=== PATIENT | male | born 1985 | race Caucasian/White ===

== ENCOUNTER 2020-10-01 09:28 | Outpatient (REF) | payer MEDICAID, SELFPAY ==
[2020-10-01 10:15] LABS: Estimated Average Glucose 123 mg/dL; Hemoglobin A1c % 5.9 %
[2020-10-01 10:26] LABS: Anion Gap 13 (12-20); Blood Urea Nitrogen 14 mg/dL (9-16); Calcium 9.2 mg/dL (8.4-10.2); Carbon Dioxide 28 mmol/L (22-29); Chloride 105 mmol/L (96-108); Cholesterol 205 mg/dL; Estimated Glomerular Filt Rate > 60; Glucose Fasting 87 mg/dL (60-99); HDL Cholesterol 51 mg/dL; LDL Cholesterol Calculated 134 mg/dl; Potassium 4.5 mmol/l (3.3-5.1); Sodium 141 mmol/L (135-145); Triglycerides 104 mg/dL
== END 2020-10-01 09:29 | disposition home or self-care (01) ==
LOC: HO.LAB 09:28
PROVIDERS: PCP Registered Nurse Community Health; Visit Provider Registered Nurse Community Health
DX: E66.9 Obesity, unspecified (principal); R03.0 Elevated blood-pressure reading, without diagnosis of hypertension
CPT/HCPCS: 80048; 80061; 83036

== ENCOUNTER 2020-12-09 09:21 | Outpatient (REF) | payer MEDICAID, SELFPAY ==
--- NOTE | 2020-12-09 09:00 | EMG_ITS ---
Bilateral tibial and peroneal motor studies were performed. Bilateral superficial peroneal and sural sensory studies were performed. Bilateral median and lateral plantar sensory studies were performed. Tibial H reflexes were obtained and paraspinal muscles were tested with a needle. IMPRESSION: 1. Mild sensorimotor peripheral neuropathy. 2. 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 MD HEMALATHA Caicedo/ISAAC / [id number]
== END 2020-12-09 09:22 | disposition home or self-care (01) ==
LOC: HO.NEURO 09:21
PROVIDERS: PCP Registered Nurse Community Health; Visit Provider Registered Nurse Community Health
DX: R20.2 Paresthesia of skin (principal)
CPT/HCPCS: 95886; 95913

== ENCOUNTER 2020-12-30 11:00 | Outpatient (RCR) | payer MEDICAID, SELFPAY | END 2020-12-30 13:45 | disposition other institution (70) | LOC: HO.PT 11:00 | PROVIDERS: Visit Provider Registered Nurse Community Health | DX: M51.37 Other intervertebral disc degeneration, lumbosacral region (principal) | CPT/HCPCS: 97110; 97112; 97140; 97161 ==

== ENCOUNTER 2021-07-22 19:42 | Emergency (ER) | payer MEDICAID, SELFPAY ==
--- NOTE | ~2021-07-22 | XR_ITS ---
EXAMINATION: XR LUMBOSACRAL SPINE CLINICAL INFORMATION: Low back pain COMPARISON: None TECHNIQUE: Three views of the lumbosacral spine. FINDINGS: The vertebral bodies and posterior elements are normal. The disc spaces are preserved and the vertebral alignment is normal. The paraspinal soft tissues are normal. XR/XR lumbar spine 2-3V IMPRESSION: Unremarkable examination.
[2021-07-22 19:48] VITALS: BP 139/95; PULSE 92; RESP 16; TEMP 35.9; O2SAT 98; BMI 34.5
--- NOTE | 2021-07-22 23:24 | ED_ITS ---
HPI - Back Pain/Injury General Chief Complaint: Back Pain/Injury Stated Complaint: back pain Source: patient Mode of arrival: ambulatory Limitations: no limitations History of Present Illness HPI Narrative: 36-year-old male presents with lower back pain and spasming after attempting to move a bunk bed about a week ago. MD elicited complaint: back pain and back injury Pertinent past history: recent trauma Onset (ago): week(s) (1) Timing: intermittent Severity: moderate Similar Symptoms Previously: No Quality: aching and spasming Location: lumbar spine Radiation: none Exacerbating factors: movement, walking and lifting Relieving factors: none Context: while lifting and turning/twisting Associated symptoms: denies other symptoms Treatments prior to arrival: cold therapy, NSAIDS and acetaminophen Work related injury: No Related Data Previous Rx's Medication Instructions Recorded cyclobenzaprine 10 mg tablet 10 mg PO TID PRN #14 tab 07/22/21 naproxen 500 mg tablet 500 mg PO BID PRN #30 tab 07/22/21 Allergies Allergy/AdvReac Type Severity Reaction Status Date / Time No Known Allergies Allergy Unverified 07/29/20 19:30 [No Known Allergies*] Review of Systems Review of Systems: Constitutional: No Fever, No Chills ENT/Mouth: No Ear Pain, No Hoarseness, No sore throat Eyes: No Eye Pain, No Swelling, No Redness, No Foreign Body Cardiovascular: No Chest Pain, No SOB Respiratory: No Cough, No Dyspnea Gastrointestinal: No Nausea, No Vomiting, No Diarrhea, No abdominal Pain Genitourinary: No Dysuria, No Hematuria Musculoskeletal: positive lumbar back pain, No Myalgias, No Joint Swelling Skin: No Skin lacerations, No rash Neuro: No Weakness, No Numbness, No Paresthesias, No Loss of Consciousness, No Dizziness, No Headache Psych: No Anxiety/Panic, No Depression Heme/Lymph: no easy bruising, no Lymphadenopathy Endocrine: No Polyuria, No Polydipsia Yes all other systems are reviewed and are negative [facility] Past Medical History Attestation statement: The following information was validated with the patient. Source: old records reviewed Medical History Chronic arthritis Herniated disc Social History Social History Advance Directives: No Physical Exam Vital Signs: Vital Signs: Last Vital Signs Temp 96.6 F L 07/22/21 19:48 Pulse 92 07/22/21 19:48 Resp 16 07/22/21 19:48 BP 139/95 H 07/22/21 19:48 Pulse Ox 98 07/22/21 19:48 Body Mass Index 34.5 Appearance: Alert. Oriented X3. Mild distress. Eyes: Pupils equal, round and reactive to light. ENT: Pharynx normal. Moist mucous membranes. Neck: Normal inspection. Neck supple. No vertebral step-offs or vertebral tenderness to palpation. CVS: Normal heart rate and rhythm. Pulses normal. Respiratory: No respiratory distress. Breath sounds normal. Abdomen: Soft and nontender. Skin: Skin warm and dry. Normal skin color. Normal skin turgor. Extremities: Moves all extremities against resistance. Gait well bowels well coordinated. Neuro: No motor deficit. No sensory deficit. Cranial nerves 2-12 intact. Course Course Course Narrative: 36-year-old male presents with lower back pain and spasming. He was lifting a bunk bed approximately a week ago, pulled back and pain persists. Tylenol, Motrin, heating pads, and salon Rodríguez are ineffective. Will order x-ray. Patient does not have any reports of cauda equina, has a well- balanced well coordinated gait. No reports of dysuria, hematuria, or flank pain. Lumbar spine x-ray negative for acute findings require emergent intervention. Patient will be discharged with supportive measures. Patient verbalized understanding of and agrees plan of care discharge home. MDM - Back Pain/Injury Differential Diagnosis Differential diagnosis: Likely lumbar radiculopathy and strain of lumbar region Medical Records Attestation: I reviewed the patient's medical records. Imaging Data Lumbar spine x-ray: Attestation: I personally reviewed and interpreted this imaging study as follows: Radiologist's impression: EXAMINATION: XR LUMBOSACRAL SPINE CLINICAL INFORMATION: Low back pain COMPARISON: None TECHNIQUE: Three views of the lumbosacral spine. FINDINGS: The vertebral bodies and posterior elements are normal. The disc spaces are preserved and the vertebral alignment is normal. The paraspinal soft tissues are normal. XR/XR lumbar spine 2-3V IMPRESSION: Unremarkable examination. Discharge Plan Discharge Clinical Impression: Strain of lumbar region Patient Disposition: Home, Self-Care Instructions: Muscle Strain (ED), Acute Low Back Pain (ED), Lower Back Exercises (ED) Additional Instructions: Your evaluate for lower back injury. X-rays negative for fracture or spine malalignment. your injuries are consistent with a muscle strain. Please use cyclobenzaprine as needed for muscle spasms. This medication is a muscle relaxer and can delay reaction time, cause drowsiness, and increased risk for falls. Do not drive or operate machinery while taking this medication. Use naproxen as needed for pain management. Thank you for choosing this emergency department for evaluation. Please follow-up with primary care physician as needed. Return to the emergency department for any new, concerning, or worsening symptoms. Prescriptions: New naproxen 500 mg tablet 500 mg PO BID PRN (Reason: pain) Qty: 30 RF: 0 cyclobenzaprine 10 mg tablet 10 mg PO TID PRN (Reason: muscle spasm) Qty: 14 RF: 0 Interventions: ED Discharge Assessment Last Done: 07/23/21 00:12 Discharge Date/Time: 07/23/21 00:12
[2021-07-23] MEDS: Cyclobenzaprine HCl 10 MG TABLET PO (00:11)
[2021-07-23] MEDS: NaPROXEN 500 MG TABLET PO (00:11)
== END 2021-07-23 00:12 | disposition home or self-care (01) ==
PROVIDERS: Emergency Provider Emergency Medicine Emergency Medical Services
DX: S39.012A Strain of muscle, fascia and tendon of lower back, initial encounter (principal); X50.0XXA Overexertion from strenuous movement or load, initial encounter; Y93.9 Activity, unspecified; Y92.009 Unspecified place in unspecified non-institutional (private) residence as the place of occurrence of the external cause; Y99.9 Unspecified external cause status; Z79.899 Other long term (current) drug therapy
CPT/HCPCS: 72100; 99283

== ENCOUNTER 2021-09-08 19:39 | Outpatient (REF) | payer MEDICAID, SELFPAY ==
--- NOTE | ~2021-09-08 | MR_ITS ---
EXAMINATION: MR LUMBAR SPINE WITHOUT CONTRAST CLINICAL INFORMATION: Bilateral leg pain, numbness, weakness, toe numbness. COMPARISON: Lumbar spine radiographs dated 07/22/2021. TECHNIQUE: MRI of the lumbar spine was obtained using routine sequences without contrast. FINDINGS: VERTEBRAL BODIES AND PARASPINAL STRUCTURES: Normal vertebral body alignment. The lumbar lordosis is maintained. No acute fracture or subluxation. No loss of vertebral body height. Loss of intervertebral disc height with disc desiccation at L1-L4 as well as at L5-S1. Multiple endplate Schmorl's nodes. No marrow edema to suggest acute osseous injury. The visualized paraspinal soft tissues are unremarkable. CONUS MEDULLARIS AND CAUDA EQUINA: Normal, terminating at the level of L1. SPINAL LEVELS: T12-L1: No significant disc bulge. No central canal or neural foraminal stenosis. L1-L2: Broad-based disc bulge with a right paracentral disc protrusion and annular fissuring which abuts the traversing right L2 nerve root within the lateral recess. Bilateral facet arthropathy with mild central canal as well as dobq-gk-poamhvjd right and mild left neural foraminal stenosis. L2-L3: Broad-based disc bulge with bilateral facet arthropathy and thickening of the ligamentum flavum causing mild central canal stenosis as well as oecv-ex-ontehzoe bilateral neural foraminal stenosis. L3-L4: Broad-based disc bulge with a superimposed posterior central disc protrusion which abuts the traversing bilateral L4 nerve roots within the lateral recesses. Bilateral facet arthropathy and thickening of the ligamentum flavum causing moderate bilateral neural foraminal stenosis. L4-L5: Broad-based disc bulge with posterior annular fissuring and a shallow posterior central disc protrusion. Bilateral facet arthropathy and thickening of the ligamentum flavum with mild central canal stenosis which encroaches upon the traversing bilateral L5 nerve roots within the lateral recesses. Moderate bilateral neural foraminal stenosis. L5-S1: Broad-based disc bulge with a posterior central disc protrusion which abuts the traversing bilateral S1 nerve roots within the lateral recesses. Bilateral facet arthropathy with dwxi-zt-jxtuznyg bilateral neural foraminal stenosis. MR/MR lumbar spine wo con IMPRESSION: 1. Broad-based disc bulge at L1-L2 with a right paracentral disc protrusion and annular fissuring which abuts the traversing right L2 nerve root. In combination with bilateral facet arthropathy, this causes mild central canal stenosis as well as stbx-nt-rpjftiwt right and mild left neural foraminal stenosis. 2. Broad-based disc bulge at L3-L4 with a posterior central disc protrusion abutting the traversing bilateral L4 nerve roots as well as bilateral facet arthropathy and thickening of the ligamentum flavum causing moderate bilateral neural foraminal stenosis. 3. Broad-based disc bulge at L4-L5 with posterior annular fissuring and a shallow posterior central disc protrusion as well as bilateral facet arthropathy and thickening of the ligamentum flavum causing mild central canal stenosis and moderate bilateral neural foraminal stenosis. 4. Broad-based disc bulge at L5-S1 with a posterior central disc protrusion as well as bilateral facet arthropathy causing mild central canal stenosis and vjqk-gc-vegbfpfm bilateral neural foraminal stenosis.
== END 2021-09-08 19:40 | disposition home or self-care (01) ==
LOC: HO.MRI 19:39
PROVIDERS: Visit Provider Registered Nurse Community Health
DX: M54.41 Lumbago with sciatica, right side (principal); M54.42 Lumbago with sciatica, left side
CPT/HCPCS: 72148

== ENCOUNTER 2022-10-19 11:22 | Outpatient (REF) | payer MEDICAID, SELFPAY ==
--- NOTE | 2022-10-19 08:30 | EMG_ITS ---
Bilateral median and ulnar motor and sensory studies were performed. Bilateral radial sensory studies were performed and paraspinal muscles were tested with a needle. IMPRESSION: Moderately severe bilateral median neuropathy across carpal tunnel. MD HEMALATHA Caicedo/ISAAC / [id number]
== END 2022-10-19 11:23 | disposition home or self-care (01) ==
LOC: HO.NEURO 11:22
PROVIDERS: Visit Provider Registered Nurse Community Health
DX: R20.0 Anesthesia of skin (principal)
CPT/HCPCS: 95886; 95911

== ENCOUNTER 2024-03-06 09:14 | Outpatient (REF) | payer MEDICAID, SELFPAY ==
[2024-03-06 11:51] LABS: Alanine Aminotransferase 22 U/L (0-40); Albumin Level 4.3 g/dL (3.5-5.0); Alkaline Phosphatase 61 U/L (39-117); Anion Gap 8 (12-20); Aspartate Amino Transferase 27 U/L (5-37); Bilirubin Total 1.1 mg/dL (0.0-1.0); Blood Urea Nitrogen 13 mg/dL (9-16); Calcium 9.3 mg/dL (8.4-10.2); Carbon Dioxide 29 mmol/L (22-29); Chloride 108 mmol/L (96-108); Cholesterol 169 mg/dL (<200); Estimated Average Glucose 117 mg/dL; Estimated Glomerular Filt Rate > 60; Glucose Random 89 mg/dL (60-115); HDL Cholesterol 55 mg/dL (>40); Hemoglobin A1c % 5.7 % (<6.0); LDL Cholesterol Calculated 106 mg/dL (<100); Potassium 4.1 mmol/L (3.3-5.1); Sodium 141 mmol/L (135-145); Total Protein 7.6 g/dL (6.5-8.0); Triglycerides 43 mg/dL (<150)
[2024-03-06 12:12] LABS: HBsAGNum1 0.42 S/CO (0.00-0.99); Hepatitis B Core Antibody Nonreactive (Nonreactive); Hepatitis B Surface Antigen Negative (Negative); ~HepC Num1 0.11 S/CO (0.00-0.79); ~Hepatitis B Surface Antibody NONREACTIVE (Nonreactive); ~Hepatitis C Antibody Nonreactive (Nonreactive)
== END 2024-03-06 09:15 | disposition home or self-care (01) ==
LOC: HO.HHCL 09:14
PROVIDERS: Visit Provider Nurse Practitioner
DX: R03.0 Elevated blood-pressure reading, without diagnosis of hypertension (principal); E66.09 Other obesity due to excess calories; Z11.3 Encounter for screening for infections with a predominantly sexual mode of transmission; Z68.31 Body mass index [BMI] 31.0-31.9, adult
CPT/HCPCS: 36415; 80053; 80061; 83036; 86704; 86706; 86803; 87340

== ENCOUNTER 2024-07-18 15:03 | Outpatient (REF) | payer MEDICAID, SELFPAY ==
[2024-07-18 16:49] LABS: Anion Gap 12 (12-20); Blood Urea Nitrogen 11 mg/dL (9-16); Calcium 9.7 mg/dL (8.4-10.2); Carbon Dioxide 27 mmol/L (22-29); Chloride 105 mmol/L (96-108); Estimated Glomerular Filt Rate > 60; Glucose Random 99 mg/dL (60-115); Sodium 140 mmol/L (135-145)
[2024-07-18 17:45] LABS: Creatinine Urine 32.36 mg/dL; Microalbumin Urine < 5.0 mg/L
== END 2024-07-18 15:04 | disposition home or self-care (01) ==
LOC: HO.HHCL 15:03
PROVIDERS: Visit Provider Nurse Practitioner
DX: R03.0 Elevated blood-pressure reading, without diagnosis of hypertension (principal)
CPT/HCPCS: 36415; 80048; 82043; 82570

== ENCOUNTER → 2024-08-28 13:04 | Outpatient (REF) | payer MEDICAID, SELFPAY | LOC: HO.SL 13:04 | PROVIDERS: PCP Nurse Practitioner; Visit Provider Nurse Practitioner | DX: G47.31 Primary central sleep apnea (principal) | CPT/HCPCS: 95806 ==

== ENCOUNTER → 2024-08-28 19:00 | Outpatient (BNV) | payer MEDICAID, SELFPAY | PROVIDERS: PCP Nurse Practitioner; Visit Provider Psychiatry & Neurology Neurology | DX: G47.33 Obstructive sleep apnea (adult) (pediatric) (principal) | CPT/HCPCS: 95806 ==

== ENCOUNTER 2024-11-17 13:21 | Outpatient (REF) | payer MEDICAID, SELFPAY ==
[2024-11-17 16:48] LABS: Anion Gap 11 (12-20); Blood Urea Nitrogen 14 mg/dL (9-16); Calcium 9.9 mg/dL (8.4-10.2); Carbon Dioxide 29 mmol/L (22-29); Chloride 107 mmol/L (96-108); Estimated Glomerular Filt Rate > 60; Glucose Random 106 mg/dL (60-115); Potassium 4.2 mmol/L (3.3-5.1); Sodium 143 mmol/L (135-145)
== END 2024-11-17 13:22 | disposition home or self-care (01) ==
LOC: HO.HHCL 13:21
PROVIDERS: Visit Provider Nurse Practitioner
DX: I10 Essential (primary) hypertension (principal)
CPT/HCPCS: 36415; 80048

== ENCOUNTER 2025-03-03 16:33 | Outpatient (REF) | payer MEDICAID, SELFPAY ==
[2025-03-03 16:49] LABS: Appearance Urine Clear; Color Urine Yellow; Glucose Urine UA Negative (Negative); Leukocyte Esterase Urine Negative (Negative); Nitrite Urine Negative (Negative); UMIC TRIGGER UACC YES; Urine Blood Trace (Negative); Urine Ketones Negative (Negative); Urine Protein Negative (Neg-Trace)
[2025-03-03 16:52] LABS: Bacteria Urine None Seen (None Seen); Hyaline Casts Urine 0-2 /LPF (0-2); Squamous Epithelial Cell Urine 0-2 /HPF (0-2); WBC Urine 0-5 /HPF (0-5)
== END 2025-03-03 16:34 | disposition home or self-care (01) ==
LOC: HO.HHCLNP 16:33
PROVIDERS: Visit Provider Internal Medicine Geriatric Medicine
DX: R10.9 Unspecified abdominal pain (principal); R35.1 Nocturia; R79.89 Other specified abnormal findings of blood chemistry; R31.29 Other microscopic hematuria
CPT/HCPCS: 81001

== ENCOUNTER 2025-03-04 09:56 | Outpatient (REF) | payer MEDICAID, SELFPAY ==
--- NOTE | ~2025-03-04 | US_ITS ---
EXAMINATION: ULTRASOUND RENAL, BILATERALLY. CLINICAL INFORMATION: Right flank pain. Hematuria. Hematuria. Elevated creatinine. COMPARISON: No priors. TECHNIQUE: Real-time ultrasound of the kidneys using grayscale and color Doppler technique. FINDINGS: Right kidney: 11 x 6 x 6 cm. Normal renal cortical thickness. Normal echotexture. No solid or cystic lesion. Mild fullness of the pelvicalyceal system. There is no dilatation of the proximal right ureter. There is flow on color Doppler interrogation of the renal hilum. Left kidney: 10 x 5 x 5 cm. Normal renal cortical thickness. Normal echotexture. No solid or cystic lesion. No hydronephrosis. Normal flow on color Doppler interrogation of the renal hilum. US/US renal BI IMPRESSION: Mild pelvicalyceal ectasia, right kidney. Electronically signed by: Marek Sears MD 03/04/2025 11:20 AM EDT
--- OUTSIDE RECORDS SUMMARY | 2025-03-04 11:25 | XMS_ITS | Encounter Summary ---
Author Organization [email or web address] Address [address] [place] [address] Care Team Providers Care Cannery Tender Engineer Name Role Phone Debra Grimes NP Primary Care Provider [phone] Reason for Referral * Imaging (Urgent) - Authorized Specialty Diagnoses / Procedures Referred By Contac t Referred To Contact Radiology Diagnoses Right flank pain Nocturia Elevated serum creatinine Hematuria, microscopic Procedures US RENAL BI Santos Prince MD [address] [place] [address] Phone: tel: fax: [address] Phone: tel: fax: Referral ID Status Reason Start Date Expiration Date V isits Requested Visits Authorized [id number] Authorized 03/03/2025 03/03/2026 1 1 Reason for Visit * Reason Comments sick onsite Encounter Details Date Type Department Care Team (Late st Contact Info) Description 03/03/2025 2:00 PM EDT Office Visit [facility] MED[facility] [address], [place] [phone] Santos Prince MD [address], [place] [phone] Right flank pain (Primary Dx); Nocturia; Elevated serum creatinine; Hematuria, microscopic Social History Tobacco Use Types Packs/Day Years Used Date Smoking Tobacco: Never Passive Smoke Exposure: Never Smokeless Tobacco: Never Alcohol Use Standard Drinks/Week Comments Never 0 (1 standard drink = 0.6 oz pur e alcohol) Alcohol Answer Date Recorded How often do you have a drink containing alcohol ? 0 05/26/2024 Average Number of Drinks Not on file 024 How often do you have six or more drinks on one occasion? 0 05/26/2024 Depression Answer Date Recorded Patient Health Questionnaire-9 Score 0 03/05/2024 Patient Health Questionnaire-9 Score 0 03/05/2024 Last PHQ-9: Questionnaire Data Not on file 0 03/05/2024 Housing Stability Answer Date Recorded What is your housing situation today? I have ana laura jade 03/05/[address] you li ve. Do you have problems with any of the following? None of the above 03/05/2024 Food Insecurity Answer Date Recorded Within the past 12 months, y ou worried that your food would run out before you got money to buy more: Never True 03/05/2024 Within the past 12 months,th e food you bought just didn't last and you didn't have enough money to get more: Never True Transportation Answer Date Recorded In the past 12 months, has l ack of transportation kept you from medical appts, meetings, work or from getting things needed for daily living? No 03/05/2024 Utilities Answer Date Recorded In the past 12 months, has t he electric, gas, oil or water company threatened to shut off services in your home? No 03/05/2024 Depression Answer Date Recorded Patient Health Questionnaire-2 Score 0 03/05/2024 Sex and Gender Information Value Date Recorded Sex Assigned at Male 09/11/2022 10:32 AM EDT Legal Sex Male 10:32 AM EDT Gender Identity Male 09/10/2023 3:06 PM EDT Sexual Orientation Straight 09/11/2022 10 :32 AM EDT documented as of this encounter Last Filed Vital Signs Vital Sign Reading Time Taken Comments Blood Pressure 135/94 03/03/2025 2:09 PM EDT Pulse 87 03/03/2025 2:09 PM EDT Temperature 36.9 ??C (98.4 ??F) 03/03/2025 2:09 PM ED T Respiratory Rate 18 03/03/2025 2:09 PM EDT Oxygen Saturation 97% 03/03/2025 2:09 PM EDT Inhaled Oxygen Concentration - - Weight 100 kg (220 lb 12.8 oz) 03/03/2025 2:09 P M EDT Height 172.7 cm (5' 8 ) 03/03/2025 2:09 PM EDT Body Mass Index 33.57 03/03/2025 2:09 PM EDT documented in this encounter Progress Notes * Santos Prince, - 03/03/2025 2:00 PM EDT Subjective Patient ID: Natanael Neal is a 39 y.o. male who presents for sick onsite. Patient comes accompanied by his for complaints of 1 week of right flank pain. He explains to me the pain sometimes starts on the right lower back and radiates to the right flank and sometimes to the right groin. He has the pain on and off. No nausea or vomiting, no diarrhea, no fevers or chills, no gross hematuria, no dysuria. He has noted nocturia up to 5 times per night. Was seen by his GI specialist this week. He had a CBC that was normal at [facility], BMP showed slight elevation of thecreatinine at 1.6. Today's urine dipstick showed trace hematuria. He again denied any dysuria or gross hematuria. He does not have any history of renal stones. No history of abdominal surgeries. Review of Systems Constitutional: Negative for chills, fatigue and fever. HENT: Negative for sore throat. Respiratory: Negative for cough, chest tightness and shortness of breath. Cardiovascular: Negative for chest pain, palpitations and leg swelling. Gastrointestinal: Positive for abdominal pain. Negative for blood in stool, constipation, diarrhea and vomiting. Endocrine: See HPI Visit Vitals BP (!) 135/94 (BP Location: Left arm, Patient Position: Sitting, BP Cuff Size: Large adult) Pulse 87 Temp 98.4 ??F (36.9 ??C) (Oral) Resp 18 Ht 5' 8 (1.727 m) Wt 220 lb 12.8 oz (100 kg) SpO2 97% BMI 33.57 kg/m?? Smoking Status Never BSA 2.19 m?? Objective Physical Exam Constitutional: General: He is not in acute distress. Appearance: He is not toxic-appearing. Cardiovascular: Rate and Rhythm: Normal rate and regular rhythm. Pulmonary: Effort: Pulmonary effort is normal. No respiratory distress. Abdominal: General: There is no distension. Tenderness: There is no guarding or rebound. Comments: Mild discomfort on deep palpation of the right flank. Assessment/Plan Diagnoses and all orders for this visit: Right flank pain Comments: I suspect kidney stone/renal colic. I recommended acetaminophen twice or 3 times a day, continue todrink plenty of water, evaluation with ultrasound of the kidneys and urinalysis. Further recommendation based on the results. I explained he should go to the ER if the pain becomes severe overnight. Orders: - US RENAL BI; Future - Urinalysis, Complete, with Reflex to Culture; Future Nocturia - US RENAL BI; Future - Urinalysis, Complete, with Reflex to Culture; Future Elevated serum creatinine - US RENAL BI; Future - POCT Urinalysis - Urinalysis, Complete, with Reflex to Culture; Future Hematuria, microscopic - US RENAL BI; Future - Urinalysis, Complete, with Reflex to Culture; Future documented in this encounter Plan of Treatment Upcoming Encounters Date Type Department Care Team (Late st Contact Info) Description 04/24/2025 10:30 AM EDT Office Visit [facility] [address] [place] [address] Debra Grimes NP [address] [place] [address] 07/20/2025 8:00 AM EDT Office Visit [facility] AD[facility] DENTAL [address] [place] [address] Krysten Ramon documented as of this encounter Procedures Procedure Name Priority Date/Time Associated Diagnosis Comments US RENAL BI Urgent 03/04/2025 10:23 AM EDT Right flank pain Nocturia Elevated serum creatinine Hematuria, microscopic POCT URINALYSIS DIPSTICK Routine 03/03/2025 2:47 PM EDT Elevated serum creatinine URINALYSIS, COMPLETE, WITH REFLEX TO CULTURE Routine 03/03/2025 12:00 AM EDT Right flank pain Nocturia Elevated serum creatinine Hematuria, microscopic documented in this encounter Results * US RENAL BI (03/04/2025 10:23 AM EDT) Anatomical Region Laterality Modality Abdomen Ultrasound 03/04/2025 10:2 3 AM EDT Narrative 03/04/2025 11:24 AM EDT ? [facility] ?[address] ?[place] [address] ? Ultrasound Report ? Signed ? Patient: Natanael Lau ?MR#: ?? [id number] ? : 1985 ?Acct:[id number] ? Age/Sex: 39 / M ?ADM Date: 03/04/25 ? Loc: HO.US ? Attending Dr: Santos Prince MD ? Ordering Physician: Santos Prince MD ?? Date of Service: 03/04/25 ?? Procedure(s): US renal BI ?? Accession Number(s): [id number] ? cc: Debra Grimes; Santos Prince MD ? EXAMINATION: ?? ULTRASOUND RENAL, BILATERALLY. ? CLINICAL INFORMATION: ?? Right flank pain. Hematuria. Hematuria. Elevated creatinine. ? COMPARISON: ?? No priors. ? TECHNIQUE: ?? Real-time ultrasound of the kidneys using grayscale and color Doppler ?? technique. ? FINDINGS: ? Right kidney: ? 11 x 6 x 6 cm. ?? Normal renal cortical thickness. ?? Normal echotexture. ?? No solid or cystic lesion. ?? Mild fullness of the pelvicalyceal system. ?? There is no dilatation of the proximal right ureter. ?? There is flow on color Doppler interrogation of the renal hilum. ? Left kidney: ? 10 x 5 x 5 cm. ?? Normal renal cortical thickness. ?? Normal echotexture. ?? No solid or cystic lesion. ?? No hydronephrosis. ?? Normal flow on color Doppler interrogation of the renal hilum. ? US/US renal BI ?? IMPRESSION: ? Mild pelvicalyceal ectasia, right kidney. ? Electronically signed by: ??Marek Sears MD ??03/04/2025 11:20 AM ?? EDT RP ? Dictated By: ?Marek Mccarty MD ? Signed By: ?<Electronically signed by Marek Merlos MD in OV> ? 03/04/25 1120 ? DD/ 1023 ? TD/TT: 03/04/25 1028 ? Derrick Barge Operator: ? Procedure Note Donotuseinterpreter, Image - 03/04/2025 [place] [address] Ultrasound Report Signed Patient: Natanael LauMR#: [id number] : 1985Acct:[id number] Age/Sex: 39 / MADM Date: 03/04/25 Loc: HO.US Attending Dr: Santos Prince MD Ordering Physician: Santos Prince MD Date of Service: 03/04/25 Procedure(s): US renal BI Accession Number(s): [id number] cc: Debra Grimes; Niki,Santos VAZ EXAMINATION: ULTRASOUND RENAL, BILATERALLY. CLINICAL INFORMATION: Right flank pain. Hematuria. Hematuria. Elevated creatinine. COMPARISON: No priors. TECHNIQUE: Real-time ultrasound of the kidneys using grayscale and color Doppler technique. FINDINGS: Right kidney: 11 x 6 x 6 cm. Normal renal cortical thickness. Normal echotexture. No solid or cystic lesion. Mild fullness of the pelvicalyceal system. There is no dilatation of the proximal right ureter. There is flow on color Doppler interrogation of the renal hilum. Left kidney: 10 x 5 x 5 cm. Normal renal cortical thickness. Normal echotexture. No solid or cystic lesion. No hydronephrosis. Normal flow on color Doppler interrogation of the renal hilum. US/US renal BI IMPRESSION: Mild pelvicalyceal ectasia, right kidney. Electronically signed by: Marek Sears MD 03/04/2025 11:20 AM EDT Dictated By: Marek Mccarty MD Signed By: <Electronically signed by Marek Merlos MDin OV> 03/04/25 1120 DD/ 1023 TD/TT: 03/04/25 1028 Derrick Barge Operator: Santos Name IMG US PROCEDURES Final Result * (ABNORMAL) POCT Urinalysis (03/03/2025 2:47 PM EDT) Color, UA Yellow Clarity, UA Clear Glucose, UA Negative Bilirubin, UA Negative Ketones, UA Negative Spec Grav, UA 1.015 Blood, UA Positive(A) Negative, None Detected Comment:Trace-intact pH, UA 7.0 Protein, UA Negative Urobilinogen, UA 0.2 Leukocytes, UA Negative Negative, Rare, Trace Nitrite, UA Negative Negative, None Detected Appearance, UA yellow QC Media Lot # [id number] Lot# Expiration Date Urine 03/03/2025 2:47 PM EDT Santos Prince MD POINT OF CARE TEST ENTER/EDIT OR DERABLES Final Result * (ABNORMAL) Urinalysis, Complete, with Reflex to Culture (03/03/2025 12:00 AM EDT) Color Urine Yellow [facility] Appearance Urine Clear [facility] PH 7.0 5.0 - 9.0 [facility] Glucose Urine UA Negative Negative mg/dL [facility] Urine Blood Trace(A) Negative [facility] Specific [place] - Urine 1.010 1.005 - 1.025 [facility] Urine Protein Negative Neg-Trace mg/dL [facility] Urine Ketones Negative Negative mg/dL [facility] Nitrite Urine Negative Negative [facility] Leukocyte Esterase Urine Negative Negative [facility] RBC Urine 3-5(A) 0 - 2 /HPF [facility] Urine WBC 0-5 0 - 5 /HPF [facility] Urine Squamous Epithelial Cell 0-2 0 - 2 /HPF [facility] Urine Bacteria None Seen None Seen [facility] Hyaline Casts, Urine 0-2 0 - 2 /LPF [facility] Urine 03/03/2025 03/03/2025 Narrative [facility] - 03/03/2025 4:55 PM EDT Urine, Clean Catch us Santos Name MD LAB URINE ORDERABLES Final Resul t [facility] [address] [place] [phone] documented in this encounter Visit Diagnoses Diagnosis Right flank pain- Primary Abdominal pain, unspecified site Nocturia Elevated serum creatinine Other nonspecific findings on examination of blood Hematuria, microscopic Microscopic hematuria documented in this encounter Additional Health Concerns Assessment Noted Time PHQ-9 Depression Total Score: 0 03/05/20 24 3:14 PM EDT documented as of this encounter Care Teams Cannery Tender Engineer Relationship Specialty Start Date End Date Debra Grimes NP [address] [place] [id number] PCP - General Family Medicine 08/21/23 documented as of this encounter
--- OUTSIDE RECORDS SUMMARY | 2025-03-04 11:25 | XMS_ITS | Encounter Summary ---
Author Organization [employer] Address [address] [facility] [address] [place] [address] Care Team Providers Care [employer] Manager Name Role Phone Cornelio Debra BYRNE Primary Care Provider [phone] Encounter Details Date Type Department Care Team (Latest Contact Info) Description 03/03/2025 Travel Social History Tobacco Use Types Packs/Day Years [...] AM EDT documented as of this encounter Plan of Treatment Upcoming Encounters Date Type Department Care Team (Late st Contact Info) Description 04/24/2025 10:30 AM EDT Office Visit [facility] MEDICINE [address] [place] [address] Debra Grimes NP [address] [place] [address] 07/20/2025 8:00 AM EDT Office Visit [facility] ADULT DENTAL [address] [place] [address] Krysten Ramon documented as of this encounter Visit Diagnoses Not on filedocumented in this encounter Additional Health Concerns Assessment Noted Time PHQ-9 Depression Total Score: 0 03/05/20 24 3:14 PM EDT documented as of this encounter Care Teams [employer] Manager Relationship Specialty Start Date End Date Debra Grimes NP [address] [place] [address] PCP - General Family Medicine 08/21/23 documented as of this encounter
--- OUTSIDE RECORDS SUMMARY | 2025-03-04 11:25 | XMS_ITS | Encounter Summary ---
Author Organization [employer] Address [address] [facility] [address] [place] [address] Care Team Providers Care [facility] Home Health Aides Teacher Name Role Phone Debra Grimes NP Primary Care Provider [phone] Reason for Visit * Reason Onset Date Comments faxed u/s stat 03/03/2025 Encounter Details Date Type Department Care Team ([facility] st Contact Info) Description 03/03/2025 Telephone [facility] MEDICINE [address] [place] [address] [place], [place] faxed u/s stat Social History Tobacco Use Types Packs/Day Years [...] AM EDT documented as of this encounter Miscellaneous Notes * Telephone Encounter - Heidy Thomason [place] - 03/03/2025 2:55 PM EDT Faxed stat /[facility] , spoke to staff they gave me an appt for 03/04/25 @ 10am for u/s , pt agrees with plans documented in this encounter Plan of Treatment Upcoming Encounters Date Type Department Care Team (Late st Contact Info) Description 04/24/2025 10:30 AM EDT Office Visit [facility] MEDICINE [address] [place] [address] Debra Grimes NP [address] [place] [address] 07/20/2025 8:00 AM EDT Office Visit [facility] ADULT DENTAL [address] [place] [address] Krysten Ramon documented as of this encounter Visit Diagnoses Not on filedocumented in this encounter Additional Health Concerns Assessment Noted Time PHQ-9 Depression Total Score: 0 03/05/20 24 3:14 PM EDT documented as of this encounter Care Teams [facility] A[facility] Teacher Relationship Specialty Start Date End Date Debra Grimes NP [address] [place] [address] PCP - General Family Medicine 08/21/23 documented as of this encounter
--- OUTSIDE RECORDS SUMMARY | 2025-03-04 11:25 | XMS_ITS | Clinical Summary ---
Author Organization [employer] Address [address] [facility] [address] [place] [address] Care Team Providers Care Button Bradder Name Role Phone Cornelio Debra BYRNE Primary Care Provider [phone] Allergies No known active allergies Medications gabapentin (Neurontin) 300 MG capsuleIndication s:Lumbar degenerative disc disease take 1 capsule by oral route 3 times every day 90 capsule 3 2 Active butalbital-acetam inophen-caffeine 50-325-40 MG tablet TOME JOSE LUIS TABLETA CADA SEIS HORAS CUANDO SEA NECESARIO FOR 30 DAYS 3 Active naproxen (Naprosyn) 500 MG tablet take 1 tablet by oral route 2 times every day as needed for low back pain 2 Active sodium chloride ([facility] Saline Nasal [place]) 0.65 % nasal sprayIndications: Viral URI USE 1-2 SPRAYS EACH NOSTRIL EVERY 2-3 HOURS NEEDED FOR NASAL CONGESTION 44 mL 1 3 Active venlafaxine XR (Effexor XR) 37.5 MG 24 hr tablet Take by mouth. 8 Active nortriptyline (Pamelor) 10 MG capsule TOME 1 C PSULA POR V A ORAL TODOS LOS D FOR 30 DAYS 4 Active ibuprofen 600 MG tablet PLEASE SEE ATTACHED FOR DETAILED DIRECTIONS 4 Active doxepin (SINEquan) 10 MG capsule TAKE 2 CAPSULE AT BEDTIME ORALLY ONCE A DAY 30 DAY(S) Active ketotifen (Zaditor) 0.025 % ophthalmic solution Administer 1 drop into affected eye(s) in the morning and 1 drop in the evening. 1 Active olmesartan (Benicar) 20 MG tabletIndications :Elevated BP without diagnosis of hypertension Take 1 tablet (20 mg) by mouth Once per day. 30 tablet 11 4 03/28/20 25 Active Blood Pressure kitIndications:El evated BP without diagnosis of hypertension 1 Units Once per day. 1 kit 4 Active Active Problems Problem Noted Date Diagnosed Date Routine adult health maintenance 05/26/2024 Assessment & Plan (05/26/2024 11:00 PM EDT): -age appropriate screening and immunizations up to date (STI screening) -mild cardiovascular risk given elevated BP readings -mental health screening negative -healthy social behaviors encouraged -anticipatory guidance reviewed: diet, exercise -message sent to DME specialist for CPAP machine supplies Prediabetes 06/08/2022 Abnormal liver function tests 04/04/2022 Headache 04/28/2019 Overview (05/26/2024): Followed by [facility]: Grace Assessment & Plan (07/21/2024 1:10 PM EDT): -chronic; followed by neurology -ongoing BP management -repeat sleep study as obstructive sleep apnea may possibly be contributing to the headaches -continue medication regimen as prescribed by neuro -referral provided eye exam provided -report any changes in headache characteristics and occurrence, or if refractory to prescribed medications Assessment & Plan (06/25/2024 9:04 AM EDT): -change in nature may be due to elevated BP -evaluate for changes in headache characteristics after starting new BP med -advised to call neurology if no improvement -headache red flags discussed: report to ED immediately if headache characteristics intensify within 5 mins of onset, if associated with intense nausea and vomiting or confusion -will discuss repeat obstructive sleep apnea testing given history of central sleep apnea, uncontrolled hypertension and persistent headaches -follow-up 4 weeks in person or sooner Central sleep apnea syndrome 10/23/2018 Assessment & Plan (12/15/2024 9:50 AM EST): -repeat testing completed 08/28/24 noted to have mild degree apnea with AHI 7 and oxygen kelvin 71%. recommendation to trial autoPAP 5-20 cm water -patient is advised to call CPAP machine company as supplies request was sent 10/17/24 Assessment & Plan (07/21/2024 9:48 AM EDT): -repeat testing to assess need for setting adjustment given daytime sleepiness, hypertension, and uncontrolled headaches -sleep hygiene reviewed. Encouraged nightly use of CPAP machine -weight loss encouraged Primary hypertension 10/23/2018 Assessment & Plan (12/15/2024 9:51 AM EST): -fluctuant seondary to life stressors and lack of med compliance. Lack of CPAP use may also be contributing to uncontrolled state -acceptable repeat reading obtained in office today -discussed creative ways for med compliance -daiy monitoring encouraged -low salt diet and 30 min moderate intensity daily exercise recommended -Reviewed ED precautions to include chest pain, shortness of breath, severe headache, sudden vision changes or BP >=180/>=120 mmHg. -Call clinic if three or more BP readings >130/80 mmHg. -follow-up 3 months Assessment & Plan (07/21/2024 9:56 AM EDT): -somewhat stable -BP is approaching goal of <130/80 mmHg -Continue current regimen with Olmesartan 20 mg every day -continue daily home BP monitoring -low salt diet and routine daily exercise encouraged -will obtain baseline EKG at next visit -referral for optometry services provided -follow-up 3 months with lab completion prior to visit Assessment & Plan (06/24/2024 9:32 PM EDT): -will start olmesartan today given persistently elevated home readings and occipital headaches. Medication side effects reviewed -encouraged to continue daily BP monitoring with goal of 130/80 mmHg -urged to eat low salt diet and engage in 30 min moderate intensity exercise daily -Reviewed ED precautions to include chest pain, shortness of breath, severe headache, sudden vision changes or BP >=180/>=120 mmHg. -Call clinic if three or more BP readings >130/80 mmHg -follow-up 2 week with team nurses and lab draw -follow-up 1 month in-person Assessment & Plan (05/26/2024 10:56 PM EDT): -daily BP monitoring advised with goal of 130/80 mmHg -low salt diet and 30 min moderate intensity daily exercise recommended -Reviewed ED precautions to include chest pain, shortness of breath, severe headache, sudden vision changes or BP >=180/>=120 mmHg. -Call clinic if three or more BP readings >130/80 mmHg -follow-up 1 week with team nurses for BP check -follow-up 2-4 weeks via televisit Hematochezia 01/21/2018 Obesity 01/21/2018 Assessment & Plan (12/15/2024 9:51 AM EST): Dietary Recommendations: Fruits, vegetables, whole grains, protein foods, and fat-free or low-fat dairy products are healthy choices. Eat different types of protein foods in your diet. This can include seafood, lean meats, poultry, beans, peas, lentils, nuts, seeds, soy products, and eggs. Limit foods and beverages higher in added sugars, saturated fat, and sodium. Exercise Recommendations: At least 150 minutes of moderate-intensity physical activity per week, or an equivalent combination of moderate- and vigorous-intensity activity Assessment & Plan (05/26/2024 10:57 PM EDT): -Healthy diet and exercise teaching completed: Eat a variety of fruit and vegetables, whole grains such as whole-wheat flour, bulgur (cracked wheat), oatmeal, and brown rice. Intake protein from beans, nuts, fish, and lean meats. Eat low-fat or fat- free dairy products. Limit highly processed foods such as hot dogs, sandwich meat, etc. Engage in minimum of 150 min of moderate intensity exercise weekly -labs ordered Anxiety 11/27/2017 Assessment & Plan (12/15/2024 9:52 AM EST): -managed by psych prescriber and therapist -encouraged to continue engaging with mental health providers -discussed diet and physical activity benefits and some coping mechanisms Degeneration of lumbar intervertebral disc 11/27 Overview (05/26/2024): -Followed by [facility] -has had injection in the past Depressive disorder 11/27/2017 Insomnia 11/27/2017 Resolved Problems Problem Noted Date Diagnosed Date Resolved Date Chronic diarrhea 03/05/2024 03/05/2024 Glaucoma 01/21/2018 08/27/2024 Assessment & Plan (05/26/2024 10:57 PM EDT): -per patient reports -needs follow-up. [facility] vision referral placed Encounters Date Type Department Care Team Description 03/03/2025 2:00 PM EDT Office Visit [facility] MEDICINE [address] [place] [address] Name, MD Santos Right flank pain (Primary Dx); Nocturia; Elevated serum creatinine; Hematuria, microscopic 03/03/2025 Telephone [facility] [address] [place] [address] Heidy Thomason MA faxed u/s stat 03/03/2025 Travel 03/03/2025 Telephone [facility]INE [address] [place] [address] Debra Grimes NP Nurse Triage 02/26/2025 9:00 AM EDT Office Visit [facility] OPTOMETRY [address] [place] [address] Roxy Bethea, OD Open angle with borderline findings, low risk, bilateral (Primary Dx); Dry eyes 02/26/2025 Travel 02/19/2025 Telephone [facility] [address] [place] [address] Chani Hinton MA chartprep 01/26/2025 4:00 PM EDT Nurse Only [facility] [address] [place] [address] Mary Nicole LPN Encounter for immunization (Primary Dx) 01/26/2025 Travel 01/23/2025 Population Health Risk Score [facility] Department [address] [phone] Provider, Population Health Generic 01/20/2025 Telephone [facility] [address] [place] [address] Chani Hinton MA ari recall 01/12/2025 9:00 AM EST Office Visit [facility] ADULT DENTAL [address] [place] [address] Krysten Ramon Dental calculus (Primary Dx) from Last 3 Months Immunizations Name Administration Dates Next Due Hep B, adult 01/26/2025,08/28/2024,07/21/2024 Influenza Injectable Quadriv alant Preservative Free IIV4 MDCK 09/17/2020 Influenza injectable quadriv alent IIV4 with preservative 11/27/2017 Influenza injectable quadriv alent preservative free 08/11/2021,10/23/2018 Tdap 01/21/2018 Family History Medical History Relation Name Comments Diabetes Father's Brother Hypertension Father's Brother Diabetes Father's Sister Hypertension Father's Sister Diabetes Maternal Grandfather Hypertension Maternal Grandfather Prostate cancer Maternal Grandfather Glaucoma Maternal Grandmother Hypertension Mother Relation Name Status Comments Father's Brother Father's Sister Maternal Grandfather Maternal Grandmother Mother Social History Tobacco Use Types Packs/Day Years Used Date Smoking Tobacco: Never Passive Smoke Exposure: Never Smokeless Tobacco: Never Tobacco Cessation:Counseling Given: Not Answered Alcohol Use Standard Drinks/Week Comments Never 0 [...] Orientation Straight 09/11/2022 10 :32 AM EDT Last Filed Vital Signs Vital Sign Reading [...] Mass Index 33.57 03/03/2025 2:09 PM EDT Plan of Treatment Upcoming Encounters Date Type Department Care Team (Late st Contact Info) Description 04/24/2025 10:30 AM EDT Office Visit [facility] MEDICINE [address] [place] [address] Debra Grimes NP [address] [place] [address] 07/20/2025 8:00 AM EDT Office Visit [facility] ADULT DENTAL [address] [place] [address] Krysten Ramon Health Maintenance Due Date Last Done Comments Family Planning (PISQ) 2001 COVID-19 Vaccine ( season) 2024 Influenza Vaccine (#1) 2024 , 09/17/2020, 10/23/2018, Additional history exists Depression Screening 03/05/2025 03/05/2024, 03/05/20 SDOH Screening 03/05/2025 03/05/2024 Diabetes: Hemoglobin A1C 03/06/2025 024, 03/30/2022, 12/21/2020 Alcohol/Substance Use Screening 05/26/2025 05/26/2024 Dental Oral Exam 07/16/2025 01/12/2025, 07/2022, 01/25/2018 Dental Prophylaxis 07/16/2025 01/12/2025, 0 03/15/2022, 05/21/2018 Dental X-Ray: Bitewings 01/13/2026 01/13/20 25, 05/01/2023, 12/21/2021, Additional history exists Tobacco Screening 03/03/2026 03/03/2025 Dental X-Ray: Full Mouth 01/14/2028 025, 12/21/2021, 04/18/2019, Additional history exists DTaP/Tdap/Td Vaccines (2 - Td or Tdap) 01/22/2028 01/21/2018 Lipid Panel 03/06/2029 03/06/2024, 03/30/2022 Zoster Vaccines (1 of 2) 2036 RSV Patients and Patients Aged 60 years or older (1 - 1-dose 75+ series) 2061 HIV Screening Completed 03/30/2022 Hepatitis C Screening Completed 03/06/2024, 022 Hepatitis B Vaccines Completed 01/26/2025, 08/28/2024, 07/21/2024 HIB Vaccines Aged Out No longer eligi ble based on patient's age to complete this topic HPV Vaccines Aged Out No longer eligi ble based on patient's age to complete this topic Hepatitis A Vaccines Aged Out No long er eligible based on patient's age to complete this topic IPV Vaccines Aged Out No longer eligi ble based on patient's age to complete this topic Meningococcal Vaccine Aged Out No kaz yuval eligible based on patient's age to complete this topic Pneumococcal Vaccine: Pediatrics (0 to 5 Years) and At-Risk Patients (6 to 49) Years) Aged Out No longer eligible based on patient's age to complete this topic RSV under 20 months Aged Out No longe r eligible based on patient's age to complete this topic Rotavirus Vaccines Aged Out No longer eligible based on patient's age to complete this topic Procedures Procedure Name Priority Date/Time Associated Diagnosis Comments US RENAL BI Urgent 03/04/2025 10:23 AM EDT Right flank pain Nocturia Elevated serum creatinine Hematuria, microscopic POCT URINALYSIS DIPSTICK Routine 03/03/2025 2:47 PM EDT Elevated serum creatinine URINALYSIS, COMPLETE, WITH REFLEX TO CULTURE Routine 03/03/2025 12:00 AM EDT Right flank pain Nocturia Elevated serum creatinine Hematuria, microscopic PERIODIC ORAL EVALUATION - ESTABLISHED PATIENT Routine 01/12/2025 9:00 AM EST ORAL HYGIENE INSTRUCTIONS Routine 01/12/2025 9:00 AM EST Dental calculus INTRAORAL - COMPLETE SERIES OF RADIOGRAPHIC IMAGES Routine 01/12/2025 9:00 AM EST PROPHYLAXIS - ADULT Routine 01/12/2025 9 :00 AM EST Dental calculus CASE PRESENTATION, DETAILED AND EXTENSIVE TREATMENT PLANNING Routine 01/12/2025 9:00 AM EST 3 LO COMPOSITE FILLING Routine 01/12/2025 12:00 AM EST HEPATITIS C AB W/REFL TO HCV RNA, QN, PCR Routine 03/06/2024 9:16 AM EDT Routine screening for STI (sexually transmitted infection) HEMOGLOBIN A1C Routine 03/06/2024 9:16 AM EDT Class 1 obesity due to excess calories without serious comorbidity with body mass index (BMI) of 31.0 to 31.9 in adult LIPID PANEL, STANDARD Routine 03/06/2024 9:16 AM EDT Class 1 obesity due to excess calories without serious comorbidity with body mass index (BMI) of 31.0 to 31.9 in adult HIV 1/2 ANTIGEN/ANTIBODY, FOURTH GENERATION W/RFL Routine 03/30/2022 11:48 AM EDT from Last 3 Months or Most Recently Relevant to Health Maintenance Results * US RENAL BI (03/04/2025 10:23 AM EDT) Anatomical Region Laterality Modality Abdomen Ultrasound 03/04/2025 10:2 3 AM EDT Narrative 03/04/2025 11:24 AM EDT ? [facility] ?[address] ?[place] [address] ? Ultrasound Report ? Signed ? Patient: Natanael Lau ?MR#: ?? [id number] ? : 1985 ?Acct:[id number] ? Age/Sex: 39 / M ?ADM Date: 03/04/25 ? Loc: HO.US ? Attending Dr: Santos Prince MD ? Ordering Physician: Santos Prince MD ?? Date of Service: 03/04/25 ?? Procedure(s): US renal BI ?? Accession Number(s): [id number] ? cc: Debra Grimes; Santos Prince MD [...] DD/ 1023 ? TD/TT: 03/04/25 1028 ? Care Team Assistant: ? Procedure Note Donotuseinterpreter, Image - 03/04/2025 [place] [address] Ultrasound Report Signed Patient: Natanael LauMR#: [id number] : 1985Acct:[id number] Age/Sex: 39 / MADM Date: 03/04/25 Loc: HO.US Attending Dr: Santos Prince MD Ordering Physician: Santos Prince MD Date of Service: 03/04/25 Procedure(s): US renal BI Accession Number(s): [id number] cc: Debra Grimes; Name,Santos VAZ EXAMINATION: ULTRASOUND RENAL, BILATERALLY. CLINICAL INFORMATION: [...] 03/04/25 1120 DD/ 1023 TD/TT: 03/04/25 1028 Care Team Assistant: Santos Name IMG US PROCEDURES Final Result [...] (03/03/2025 12:00 AM EDT) Color Urine Yellow [facility] Appearance Urine Clear [facility] PH 7.0 5.0 - 9.0 [facility] Glucose Urine UA Negative Negative mg/dL [facility] Urine Blood Trace(A) Negative [facility] Specific [place] - Urine 1.010 1.005 - 1.025 [facility] Urine Protein Negative Neg-Trace mg/dL [facility] Urine Ketones Negative Negative mg/dL [facility] Nitrite Urine Negative Negative [facility] Leukocyte Esterase Urine Negative Negative [facility] RBC Urine 3-5(A) 0 - 2 /HPF [facility] Urine WBC 0-5 0 - 5 /HPF [facility] Urine Squamous Epithelial Cell 0-2 0 - 2 /HPF [facility] Urine Bacteria None Seen None Seen [facility] Hyaline Casts, Urine 0-2 0 - 2 /LPF [facility] Urine 03/03/2025 03/03/2025 Narrative [facility] - 03/03/2025 4:55 PM EDT Urine, Clean Catch us Santos Prince MD LAB URINE ORDERABLES Final Resul t Performing Organization Address [facility] Co de Phone Number [facility] [address] [place] [phone] * Hepatitis C Antibody with Reflex to HCV, RNA, Quantitative, Real-Time PCR (03/06/2024 9:16 AM EDT) Hepatitis C Antibody Nonreactive Nonreactive [facility] Comment:Antibodies to HCV no t detected; does not exclude early acuteHCV infection. Blood Venous blood specimen / Unknown 03/06/2024 9:16 AM EDT 03/06/2024 11:28 AM EDT Debra Grimes NP LAB BLOOD ORDERABLES Final Resu lt Performing Organization Address [facility] de Phone Number [facility] [address] [place] [phone] * Hemoglobin A1c (03/06/2024 9:16 AM EDT) Hemoglobin A1c 5.7 <6.0 % [facility] Comment:Hemoglobin A1C Refer ence Range Adults: 4.8 - 6.0 % Non diabetic: < 6.0 % Goal: < 7.0 %Additional Action Suggested: > 8.0 %Note: Hemoglobin A1c results are invalid for patients with abnormal amounts of HbF. Blood transfusions may impact the HbA1c concentration in the patient sample. Estimated Average Glucose 117 mg/dL [facility] Comment:eAG = Estimated ave rage glucose which is %A1C expressed asaverage glucose, using the formula of the [id number] Glucose study (ADAG), Diabetes Care, Vol.31,#8,Jun. 2007 Blood Venous blood specimen / Unknown 03/06/2024 9:16 AM EDT 03/06/2024 11:28 AM EDT Debra Grimes NP LAB BLOOD ORDERABLES Final Resu lt Performing Organization Address [facility] Co de Phone Number [facility] [address] [place] [address] [phone] * (ABNORMAL) Lipid Panel, Standard (03/06/2024 9:16 AM EDT) Triglycerides 43 <150 mg/dL [facility] Comment:Desirable Triglyceri de: less than 150 mg/dLBorderline High Triglyceride 150-199 mg/dLHigh Triglyceride: 200-499 mg/dLVery High Triglyceride: greater than or equal to 5OO mg/dL Cholesterol 169 <200 mg/dL [facility] Comment:Desirable Cholestero l: less than 200 mg/dLBorderline High Cholesterol: 200-239 mg/dLHigh Cholesterol: greater than 239 mg/dL LDL Cholesterol Calculated 106(H) <100 mg/dL [facility] Comment:Desirable LDL: less than 100 mg/dLNear Optimal/Above Optimal LDL: 110- 129 mg/dLBorderline High LDL: 130-159 mg/dLHigh LDL: 160-189 mg/dLVery High LDL: greater than or equal to 190 mg/dL HDL Cholesterol 55 >40 mg/dL [facility] Comment:Desirable HDL: great er than 40 mg/dL Note: This HDL assay may give artificially low results in patients with liver disease. Blood Venous blood specimen / Unknown 03/06/2024 9:16 AM EDT 03/06/2024 11:28 AM EDT Debra Grimes [employer] LAB BLOOD ORDERABLES Final Resu lt Performing Organization Address [facility]/ZIP Co de Phone Number [facility] [address] [place] [address] [phone] * HIV 1/2 ANTIGEN/ANTIBODY,FOURTH GENERATION W/RFL (03/30/2022 11:48 AM EDT) HIV-1/2 ANTIGEN AND ANTIBODIES, 4TH GENERATION W/ REFLEX NON-REACT SANDY NON-REACT SANDY [facility] Comment: HIV-1 antigen and HIV-1/HIV-2 antibodies were not detected. There is no laboratory evidence of HIV infection. ?? PLEASE NOTE: This information has been disclosed to you from records whose confidentiality may be protected by state law. ??If your state requires such protection, then the state law prohibits you from making any further disclosure of the information without the specific written consent of the person to whom it pertains, or as otherwise permitted by law. A general authorization for the release of medical or other information is NOT sufficient for this purpose. ? For additional information please refer to http://education.[employer]/faq/UNI615 (This link is being provided for informational/ educational purposes only.) ? The performance of this assay has not been clinically validated in patients less than 2 years old. ?? 03/30/2022 11:4 8 AM EDT us Caterina Stone NP LAB BLOOD ORDERABLES Final Res ult [facility] [address] from Last 3 Months or Most Recently Relevant to Health Maintenance [id number] Care Teams Button Bradder Relationship Specialty Start Date End Date Debra Grimes NP [address] [place] [phone] PCP - General Family Medicine 08/21/23
--- OUTSIDE RECORDS SUMMARY | 2025-03-04 11:26 | XMS_ITS | Encounter Summary ---
Author Organization [facility] Address [address] [facility] [address] [place] [address] Care Team Providers Care Customer Engagement Analyst Name Role Phone Makenna Millan Primary Care Provider [phone] Debra Grimes NP Primary Care Provider [phone] Encounter Details Date Type Department Care Team (Latest Contact Info) Description 03/15/2022 Abstract [facility] CONVERSIONS Dental, Provider, DDS Social History Tobacco Use Types Packs/Day Years Used Date Smoking Tobacco: Never Assessed Sex and Gender Information Value Date Recorded Sex Assigned at Male 09/11/2022 10:32 AM EDT Legal Sex Male 10:32 AM EDT Gender Identity Male 09/10/2023 3:06 PM EDT Sexual Orientation Straight 09/11/2022 10 :32 AM EDT documented as of this encounter Plan of Treatment Upcoming Encounters Date Type Department Care Team ( st Contact Info) Description 04/24/2025 10:30 AM EDT Office Visit [facility] MEDICINE [address] [place] [address] Debra Grimes NP [address] [place] [address] 07/20/2025 8:00 AM EDT Office Visit [facility] ADULT DENTAL [address] [place] [address] Krysten Ramon documented as of this encounter Visit Diagnoses Not on filedocumented in this encounter Care Teams Customer Engagement Analyst Relationship Specialty Start Date End Date Makenna Millan FNP PCP - General Family Medicine 07/12/22 08/20/23 Debra Grimes NP [address] [place] [phone] PCP - General Family Medicine 08/21/23 documented as of this encounter
--- OUTSIDE RECORDS SUMMARY | 2025-03-04 11:26 | XMS_ITS | Encounter Summary ---
Author Organization [facility] Address [address] [facility] [address] [place] [address] Care Team Providers Care Perfumer Name Role Phone Debra Grimes NP Primary Care Provider [phone] Reason for Visit * Reason Onset Date Comments Nurse Triage 03/03/2025 Encounter Details Date Type Department Care Team ([facility] st Contact Info) Description 03/03/2025 Telephone [facility] MEDICINE [address] [place] [address] Debra Grimes NP [address] [place] [address] Nurse Triage Social History Tobacco Use Types Packs/Day Years [...] encounter Miscellaneous Notes * Telephone Encounter - Colleen Concepcion RN - 03/03/2025 9:49 AM EDT Called pt. Via [employer] interpreter and translator [phone] [address]. Pt. States that he has been having pain in his bellyfrom the center of belly down to right side and radiates to right side of back x 1 week. No pain with urination. No fever. No lump noted in abdomen that is palpable. No diarrhea but, did have constipation. No nausea or vomiting. Last BM was yesterday. Pt. Does state that he has discomfort when he presses on his lower right side of abdomen. Pt. States that when he walks he has slight discomfort inmid belly to lower right side of abdomen. Pt. Denies need for ED and would like appt. In [facility] today.Appt. Made for 2pm today with Dr. [place]. Protocol Used: Abdominal Pain - Male (Adult) Protocol-Based Disposition: See in Office or Video Visit Today Video visit offer not recorded Positive Triage Questions: * Moderate pain (e.g., interferes with normal activities) that comes and goes (cramps) lasts > 24 hours (Exception: Pain with Vomiting or Diarrhea - see that Protocol.) * Patient wants to be seen * All higher-acuity triage questions were negative Care Advice Discussed: * Rest * Drink Clear Fluids * Diet * Pass a Stool * Telephone Encounter - Brown Goldnandez - 03/03/2025 9:08 AM EDT Symptoms: Abdominal Pain - Male, Back Pain - Not From Injury Outcome: Talk to a nurse or provider within 15 minutes Reason: Severe pain now The caller accepted this outcome. Contact pt at [phone] documented in this encounter Plan of Treatment Upcoming Encounters Date Type Department Care Team (Late st Contact Info) Description 04/24/2025 10:30 AM EDT Office Visit [facility] MEDICINE [address] [place] [address] Debra Grimes NP [address] [place] [address] 07/20/2025 8:00 AM EDT Office Visit [facility] ADULT DENTAL [address] [place] [address] Krysten Ramon documented as of this encounter Visit Diagnoses Not on filedocumented in this encounter Additional Health Concerns Assessment Noted Time PHQ-9 Depression Total Score: 0 03/05/20 24 3:14 PM EDT documented as of this encounter Care Teams Perfumer Relationship Specialty Start Date End Date Debra Grimes NP [address] [place] [address] PCP - General Family Medicine 08/21/23 documented as of this encounter
--- OUTSIDE RECORDS SUMMARY | 2025-03-04 11:26 | XMS_ITS | Clinical Summary ---
Author Organization [address] [place] [address] [place] [phone] Phone Care Team Providers Care Fashion Artist Name Role Phone Debra Grimes NP Primary Care Provider [phone] Allergies No known active allergies Medications nortriptyline (PAMELOR) 10 mg capsule Take 1 capsule (10 mg total) by mouth 2 (two) times a day. 02/20/2024 Active venlafaxine (EFFEXOR) 75 mg tablet Take 1 tablet (75 mg total) by mouth 1 (one) time. Active doxepin (SINEquan) 10 mg capsule TAKE 2 CAPSULE AT BEDTIME ORALLY ONCE A DAY 30 DAY(S) Active butalbital-acet aminophen-caffe ine (FIORICET, ESGIC) 50-325-40 mg per tablet 1 tablet. Active naproxen (NAPROSYN) 250 mg tablet Take 1 tablet (250 mg total) by mouth. Active olmesartan (BENICAR) 20 mg tablet 1 tablet (20 mg total). 03/28/2024 Active Active Problems No known active problems Encounters Date Type Department Care Team Description 12/24/2024 10:00 AM EST Office Visit Orthopedic Surgery [address] [phone] Gurpreet Salguero MD Closed nondisplaced fracture of proximal phalanx of left index finger, initial encounter (Primary Dx) 12/04/2024 3:15 PM EST Office Visit Orthopedic [address] [phone] Gurpreet Salguero MD Closed nondisplaced fracture of proximal phalanx of left index finger, initial encounter (Primary Dx) from Last 3 Months Surgical History Surgery Date Site/Laterality Comments CARPAL TUNNEL RELEASE 06/12/2023 - 07/12/2023 Left CARPAL TUNNEL RELEASE 11/12/2023 - 12/12/2023 Right Social History Tobacco Use Types Packs/Day Years Used Date Smoking Tobacco: Never Smokeless Tobacco: Never Alcohol Use Standard Drinks/Week Comments Never 0 (1 standard drink = 0.6 oz pur e alcohol) Sex and Gender Information Value Date Recorded Sex Assigned at Not on file Legal Sex Male 10:45 PM EST Gender Identity Not on file Sexual Orientation Not on file Obstetrics History Last Filed Vital Signs Vital Sign Reading Time Taken Comments Blood Pressure 122/85 10/31/2024 2:14 AM EST Pulse 65 10/31/2024 2:14 AM EST Temperature 36.6 ??C (97.9 ??F) 10/30/2024 10:[address] Respiratory Rate 18 10/31/2024 2:14 AM EST Oxygen Saturation 96% 10/31/2024 2:14 AM EST Inhaled Oxygen Concentration - - Weight 95.3 kg (210 lb) 12/24/2024 10:14 AM EST Height 177.8 cm (5' 10 ) 12/24/2024 10:14 AM EST Body Mass Index 30.13 12/24/2024 10:14 AM EST Plan of Treatment Health Maintenance Due Date Last Done Comments Social Influencers of Health Screening 10/15/2022 COVID-19 Vaccine ( season) 2024 Hepatitis B Vaccines (3 of 3 - 19+ 3-dose series) 01/18/2025 08/28/2024, 07/21/2024 Depression Screening 03/05/2025 03/05/2024 Influenza Vaccine (Season Ended) 2025 08/11/2021, 09/17/2020, 10/23/2018, Additional history exists Hypertension/CHF/CAD Annual BMP Blood Test 11/17/2025 11/17/2024, 07/18/2024 DTaP,Tdap,and Td Vaccines (2 - Td or Tdap) 01/22/2028 01/21/2018 Cholesterol Screening (Lipid Panel) 03/06/2029 03/06/2024 HIV Screening Completed 03/30/2022 Hepatitis C Screening Completed 03/06/2024 HIB Vaccines Aged Out No longer eligi [...] on patient's age to complete this topic MMR Vaccines Aged Out No longer eligi ble based on patient's age to complete this topic Meningococcal ACWY Vaccine Aged Out N o longer eligible based on patient's age to complete this topic Meningococcal B Vaccine Aged Out No l onger eligible based on patient's age to complete this topic Pneumococcal Vaccine: Pediatrics (0 to 5 Years) and At-Risk Patients (6 to 64 Years) Aged Out No longer eligible based on patient's age to complete this topic RSV Immunization Patients Under 20 months Aged Out No longer eligible based on patient's age to complete this topic Varicella Vaccines Aged Out No longer eligible based on patient's age to complete this topic Procedures Procedure Name Priority Date/Time Associated Diagnosis Comments XR FINGERS 2+ VIEWS LEFT Routine 12/04/2024 3:41 PM EST Pain from Last 3 Months Results * XR Fingers 2+ Views Left (12/04/2024 3:41 PM EST) Anatomical Region Laterality Modality Upper Extremities, Fingers Left Compu nica Radiography Narrative 12/04/2024 5:27 PM EST 3 view x-rays of the left index finger obtained today show no displacement to the previous fracture line of the proximal phalanx with bony callus formation at the ulnar aspect of the proximal phalanx. Impression: Well-healed fracture of the proximal phalanx with bony callus formation Gurpreet Salguero MD IMG XR PROCEDURES Final Result from Last 3 Months Insurance MEDICAID - [place] Care Teams Fashion Artist Relationship Specialty Start Date End Date Debra Grimes NP [address] [phone] PCP - General 12/04/24
--- OUTSIDE RECORDS SUMMARY | 2025-03-04 11:26 | XMS_ITS | Encounter Summary ---
Author Organization [employer] Address [address] [facility] [address] [place] [address] Care Team Providers Care Cooker Mechanic Name Role Phone Debra Grimes NP Primary Care Provider [phone] Encounter Details Date Type Department Care Team ([facility] Contact Info) Description 10/07/2024 Orders Only [facility] MEDICINE [address] [place] [address] Debra Grimes NP [address] [place] [address] Social History Tobacco Use Types Packs/Day Years [...] Description 04/24/2025 10:30 AM EDT Office Visit [facility] MEDICINE [address] [place] [address] Debra Grimes NP [address] [place] [address] 07/20/2025 8:00 AM EDT Office Visit [facility] ADULT DENTAL [address] [place] [address] Krysten Ramon documented as of this encounter Visit Diagnoses Not on filedocumented in this encounter Additional Health Concerns Assessment Noted Time PHQ-9 Depression Total Score: 0 03/05/20 24 3:14 PM EDT documented as of this encounter Care Teams Cooker Mechanic Relationship Specialty Start Date End Date Debra Grimes NP [address] [place] [address] PCP - General Family Medicine 08/21/23 documented as of this encounter
== END 2025-03-04 09:57 | disposition home or self-care (01) ==
LOC: HO.US 09:56
PROVIDERS: PCP Nurse Practitioner; Visit Provider Internal Medicine Geriatric Medicine
DX: R10.9 Unspecified abdominal pain (principal); R35.1 Nocturia; R31.29 Other microscopic hematuria; R79.89 Other specified abnormal findings of blood chemistry
CPT/HCPCS: 76775

== ENCOUNTER → 2025-03-04 10:03 | Outpatient (BNV) | payer MEDICAID, SELFPAY | PROVIDERS: PCP Nurse Practitioner; Visit Provider Radiology Diagnostic Radiology | DX: N28.89 Other specified disorders of kidney and ureter (principal) | CPT/HCPCS: 76775 ==

== ENCOUNTER 2025-04-24 11:33 | Outpatient (REF) | payer MEDICAID, SELFPAY ==
--- OUTSIDE RECORDS SUMMARY | 2025-04-24 12:29 | XMS_ITS | Clinical Summary ---
Author Organization [address] [place] [address] [place] [phone] Phone Care Team Providers Care Milking Machine Technician Name Role Phone Debra Grimes NP Primary Care Provider [phone] Allergies No known active allergies Medications nortriptyline [...] Active Active Problems No known active problems Surgical History Surgery Date Site/Laterality Comments CARPAL [...] on patient's age to complete this topic Insurance MEDICAID - [place] Care Teams Milking Machine Technician Relationship Specialty Start Date End Date Debra Grimes NP [address] [place] [phone] PCP - General 12/04/24
[2025-04-24 13:24] LABS: Alanine Aminotransferase 39 U/L (0-40); Albumin Level 4.7 g/dL (3.5-5.0); Alkaline Phosphatase 62 U/L (39-117); Anion Gap 10 (12-20); Aspartate Amino Transferase 33 U/L (5-37); Bilirubin Total 0.8 mg/dL (0.0-1.0); Blood Urea Nitrogen 14 mg/dL (9-16); Calcium 9.5 mg/dL (8.4-10.2); Carbon Dioxide 27 mmol/L (22-29); Chloride 107 mmol/L (96-108); Cholesterol 198 mg/dL (<200); Estimated Glomerular Filt Rate > 60; Glucose Random 91 mg/dL (60-115); HDL Cholesterol 54 mg/dL (>40); LDL Cholesterol Calculated 130 mg/dL (<100); Potassium 4.2 mmol/L (3.3-5.1); Sodium 140 mmol/L (135-145); Total Protein 7.9 g/dL (6.5-8.0); Triglycerides 74 mg/dL (<150)
[2025-04-24 13:30] LABS: Estimated Average Glucose 120 mg/dL; Hemoglobin A1c % 5.8 % (<6.0)
== END 2025-04-24 11:34 | disposition home or self-care (01) ==
LOC: HO.HHCL 11:33
PROVIDERS: Visit Provider Nurse Practitioner
DX: I10 Essential (primary) hypertension (principal); E66.811 Obesity, class 1; Z68.33 Body mass index [BMI] 33.0-33.9, adult
CPT/HCPCS: 36415; 80053; 80061; 83036